=== PATIENT | female | born 1975 | race American Indian/Alaskan Native ===

== ENCOUNTER 2018-08-23 11:03 | Emergency (ER) | payer BC ==
[2018-08-23 11:08] VITALS: BMI 41.3
[2018-08-23 11:10] VITALS: O2SAT 99
--- NOTE | 2018-08-23 13:32 | C.PDOC ---
History Of Present Illness Patient comes in complaining of left knee pain since this morning when she woke up. Patient denies any injury and states she took Naproxen 200mg PO 1 hour prior to arrival with no relief. Patient states she has had pain in her knee before but did not have medical evaluation. No weakness, numbness or tingling. Patient denies any additional medical complaints. Time Seen by Provider: 08/23/18 11:24 Chief Complaint (Nursing): Lower Extremity Problem/Injury History Per: Patient History/Exam Limitations: no limitations Onset/Duration Of Symptoms: Sudden Onset Current Symptoms Are (Timing): Still Present Additional History Per: Patient Past Medical History Reviewed: Historical Data, Nursing Documentation, Vital Signs Vital Signs: Last Vital Signs Temp 97.7 F 08/23/18 11:07 Pulse 80 08/23/18 11:07 Resp 18 08/23/18 11:07 BP 199/80 H 08/23/18 11:07 Pulse Ox 99 08/23/18 11:07 - Medical History PMH: No Chronic Diseases Surgical History: No Surg Hx Family History: States: No Known Family Hx - Social History Hx Alcohol Use: No Hx Substance Use: No - Immunization History Hx Tetanus Toxoid Vaccination: No Hx Influenza Vaccination: No Hx Pneumococcal Vaccination: No Review Of Systems Except As Marked, All Systems Reviewed And Found Negative. Musculoskeletal: Positive for: Other (left knee pain) Neurological: Negative for: Weakness, Numbness Physical Exam - Physical Exam Appears: Non-toxic, No Acute Distress, Other (moderately obese) Skin: Normal Color, Warm, Dry Head: Atraumatic, Normacephalic Eye(s): bilateral: Normal Inspection Neck: Supple Chest: Symmetrical Cardiovascular: Rhythm Regular Respiratory: Normal Breath Sounds Extremity: Normal ROM, Tenderness (diffuse tenderness to knee), No Calf Tenderness, No Deformity, No Swelling Neurological/Psych: Oriented x3 ED Course And Treatment O2 Sat by Pulse Oximetry: 99 (RA) Pulse Ox Interpretation: Normal - Other Rad knee xray\ X-Ray: Viewed By Me, Read By Radiologist Interpretation: Date of service: 08/23/2018. PROCEDURE: Left Knee Radiographs. HISTORY: Pain. COMPARISON: None. FINDINGS: BONES: Bone alig nment is normal. There is diffuse bone demineralization.There is no acute displaced fracture or bone destruction. There is an old fracture deformity in the lateral tibial plateau. JOINTS: There is moderate tricompartmental degenerative osteoarthrosis with reduced joint spaces, marginal osteophytes and tibial spiking, worse in the medial compartment. JOINT EFFUSION: There is a moderate suprapatellar joint effusion. OTHER FINDINGS: None. IMPRESSION: No acute fracture or dislocation. Moderate tricompartmental degenerative osteoarthrosis, worse in the medial compartment. Moderate suprapatellar joint effusion. Progress Note: XR left knee ordered and reviwed; patient with degenerative changes to the knee. Patient given motrin and lidoderm patch for pain relief. Brennan wrap applied by tech and post application exam shows normal neurovascular sensations. Patient informed of XR findings and instructed to follow up with orthopedist without fail for further evaluation (referral given). Disposition - Disposition Referrals: Brianna Hernandez MD [Staff Provider] - Disposition: HOME/ ROUTINE Disposition Time: 13:30 Condition: STABLE Additional Instructions: FOLLOWUP WITH YOUR PMD AND ORTHOPEDIST WITHIN 1-2 DAYS. RETURN TO ED IF FEEL WORSE. Prescriptions: Lidocaine 5% [Lidoderm] 1 patch TP DAILY #30 patch Ibuprofen [Motrin Tab] 600 mg PO Q8 #30 tab Instructions: Knee Pain Forms: [email or web address] (Czech) - Clinical Impression Clinical Impression: Knee pain - PA / SWATCHER / Resident Statement MD/DO has reviewed & agrees with the documentation as recorded. - Scribe Statement The provider has reviewed the documentation as recorded by the Juma Randhawa Provider Attestation: All medical record entries made by the Juma were at my direction and personally dictated by me. I have reviewed the chart and agree that the record accurately reflects my personal performance of the history, physical exam, medical decision making, and the department course for this patient. I have also personally directed, reviewed, and agree with the discharge instructions and disposition.
[2018-08-23 13:50] VITALS: BP 155/85; PULSE 90; RESP 16; TEMP 98.2
--- NOTE | 2018-08-23 14:06 | RAD ---
Date of service: 08/23/2018 PROCEDURE: Left Knee Radiographs. HISTORY: Pain. COMPARISON: None. FINDINGS: BONES: Bone alignment is normal. There is diffuse bone demineralization.There is no acute displaced fracture or bone destruction. There is an old fracture deformity in the lateral tibial plateau. JOINTS: There is moderate tricompartmental degenerative osteoarthrosis with reduced joint spaces, marginal osteophytes and tibial spiking, worse in the medial compartment. JOINT EFFUSION: There is a moderate suprapatellar joint effusion. OTHER FINDINGS: None. IMPRESSION: No acute fracture or dislocation. Moderate tricompartmental degenerative osteoarthrosis, worse in the medial compartment. Moderate suprapatellar joint effusion.
== END 2018-08-23 13:49 | disposition home or self-care (01) ==
LOC: C.ER 11:03
DX: M25.562 Pain in left knee (principal)